=== PATIENT | female | born 1950 | race Caucasian/White ===

== ENCOUNTER → 2017-09-22 | Outpatient (CLI) | payer MEDICARE ==
--- NOTE | 2017-09-22 08:49 | US ---
EXAMINATION TYPE: US abdomen complete DATE OF EXAM: 09/22/2017 COMPARISON: NONE CLINICAL HISTORY: Acute Pancreatitis w/o necrosis or infection K85.90. recent pancreatitis, patient s till "does not feel right", cholecystectomy EXAM MEASUREMENTS: Liver Length: 15.6 cm Gallbladder Wall: Surgically absent cm CBD: 0.5 cm Spleen: 10.5 cm Right Kidney: 9.5 x 4.1 x 4.2 cm Left Kidney: 9.6 x 3.3 x 4.2 cm bowel gas limits exam Pancreas: wnl Liver: difficult to penetrate (intercostal imaging used) with diminished visualization of the portal triads most commonly related to hepatic steatosis. This limits evaluation for underlying hepatic mas ses. Surrounding the zeeshan hepatis there is a geographic 3.0cm hyperechoic area noted within portal h epatis. Gallbladder: Surgically absent Evidence for sonographic Ribeiro's sign: no CBD: wnl Spleen: wnl Right Kidney: wnl Left Kidney: wnl Upper IVC: wnl Abd Aorta: wnl The intrahepatic portion of the IVC and proximal abdominal aorta are within normal limits. Common bi le duct is unremarkable. The visualized portions of the pancreas are homogenous. The spleen is unre markable. Kidneys are symmetric and free of hydronephrosis. No renal lesions are seen. IMPRESSION: 1. No sonographic evidence of peripancreatic fluid collection. Pancreas and its visualized portions a ppears homogeneous. 2. Findings likely representing hepatic steatosis with focal fatty sparing around the zeeshan hepatis, however other hyperechoic hepatic mass remains a possibility and confirmation with three-phase enhanc ed CT abdomen could be performed for more definitive characterization.
[2017-09-22 09:04] LABS: HCT 40.4 % (34.0-46.0); HGB 13.5 gm/dL (11.4-16.0); MCH 32.4 pg (25.0-35.0); MCHC 33.3 g/dL (31.0-37.0); MCV 97.3 fL (80.0-100.0); Platelet Count 243 k/uL (150-450); RBC 4.16 m/uL (3.80-5.40); RDW 12.9 % (11.5-15.5); WBC 5.2 k/uL (3.8-10.6)
[2017-09-22 09:14] LABS: ALT 39 U/L (9-52); AST 24 U/L (14-36); Albumin 4.3 g/dL (3.5-5.0); Alkaline Phosphatase 62 U/L (38-126); Amylase 71 U/L (30-110); Anion Gap 12 mmol/L; Blood Urea Nitrogen 15 mg/dL (7-17); Calcium 9.7 mg/dL (8.4-10.2); Carbon Dioxide 28 mmol/L (22-30); Chloride 105 mmol/L (98-107); Glucose 98 mg/dL (74-99); Lipase 234 U/L (23-300); Potassium 4.5 mmol/L (3.5-5.1); Sodium 145 mmol/L (137-145); Total Bilirubin 0.4 mg/dL (0.2-1.3)
== END | disposition home or self-care (01) ==
LOC: RADUSWWP 08:09
DX: K85.90 Acute pancreatitis without necrosis or infection, unspecified (principal)
CPT/HCPCS: 36415; 76700; 80053; 82150; 83690; 85027; 86301